=== PATIENT | female | born 1960 | race Caucasian/White ===

== ENCOUNTER 2018-10-24 21:01 | Inpatient (IN) | payer MEDICAID | END 2018-10-28 14:05 | disposition home or self-care (01) | LOC: ER 21:01 → TELE-CENTR 10-25 21:28 → TELE 10-25 03:03 → TELE-CENTR 10-25 21:38 | DX: I11.0 Hypertensive heart disease with heart failure (principal); J44.1 Chronic obstructive pulmonary disease with (acute) exacerbation; I50.33 Acute on chronic diastolic (congestive) heart failure; E66.9 Obesity, unspecified; G25.81 Restless legs syndrome ==

== ENCOUNTER 2019-06-03 10:19 | Inpatient (IN) | payer MEDICAID ==
[~2019-06-03] VITALS: Ht 157.5 cm; Wt 171.8 kg
[~2019-06-03 10:19] MED LIST: ALBUAER3 IN; AMLO5TAB15 PO; BECL40AE11 IN; BUP100T PO; HYDR50TA69 PO; LAM100T PO; OME20T PO; SIMV-8 PO; SUVO1TAB4 PO
[2019-06-03] MEDS ORDERED: SODIUM CHLORIDE 0.9% 1,000 ML IV ONE (11:05)
[2019-06-03 11:40] LABS: Basophils % (auto) 0.5 % (0.0-2.0); Eosinophils # (auto) 0.2 uL; Hemoglobin 8.9 g/dL (12.2-16.2); Mean Corpuscular Hgb Conc. 29.6 g/dL (32.0-36.0); Nucleated Red Blood Cells % 0.2 %; Red Blood Cells 4.06 10^6/uL (4.0-5.20)
[2019-06-03 11:41] LABS: Basophils # (auto) 0.1 uL; Eosinophils % (auto) 2.1 % (0.0-7.0); Hematocrit 30.1 % (36.0-46.0); Mean Corpuscular Hemoglobin 21.9 pg (28.0-32.0); Mean Corpuscular Volume 74.1 fL (80.0-100.0); Monocytes # (auto) 0.9 uL; Monocytes % (auto) 8.9 % (0.0-12.0); Neutrophils # (auto) 6.9 uL; Neutrophils % (auto) 68.5 % (37.0-80.0); Platelet Count (auto) 407 10^3/uL (140-450); Red Cell Distribution Width 18.9 % (11.8-14.3); White Blood Cell 10.1 10^3/uL (4.4-10.8)
[2019-06-03 11:59] LABS: INR < 0.93 (0.9-1.15); Partial Thromboplastin Time 24.9 sec (23.64-32.05)
[2019-06-03 12:40] LABS: Alanine Aminotransferase 32 U/L (13-56); Albumin 3.4 g/dL (3.4-5.0); Anion Gap 7 (5-15); Blood Urea Nitrogen 10 mg/dL (7-18); Calcium 8.8 mg/dL (8.5-10.1); Carbon Dioxide 34 mmol/L (21-32); Chloride 98 mmol/L (98-107); Glucose 289 mg/dL (74-106); Magnesium 2.2 mg/dL (1.6-2.6); Potassium 3.8 mmol/L (3.5-5.1); Sodium 139 mmol/L (136-145)
[2019-06-03 12:45] LABS: Alkaline Phosphatase 103 U/L (45-117); Aspartate Aminotransferase 21 U/L (15-37); BUN/Creatinine Ratio 11.9; Bilirubin, Total 0.3 mg/dL (0.2-1.0); GFR African American 89 mL/min; GFR Non-African American 74 mL/min; Total Protein 7.6 g/dL (6.4-8.2)
[2019-06-03] MEDS ORDERED: IOHEXOL 350 MG/ML 100ML IJ ONE (14:15)
[2019-06-03] MEDS ORDERED: cefTRIAXone 1GM/50ML D5W 50 ML IV ONE (15:00)
[2019-06-03] MEDS ORDERED: FUROSEMIDE 20 MG/2 ML VIAL IV ONE (15:00)
[2019-06-03] MEDS ORDERED: SPIRONOLACTONE 25 MG TAB PO ONE (15:00)
[2019-06-03] MEDS ORDERED: ONDANSETRON HCL 4 MG/2 ML VIAL IV PRN (16:15)
[2019-06-03] MEDS ORDERED: ACETAMINOPHEN 500 MG TAB PO PRN (16:15)
[2019-06-03] MEDS ORDERED: NITROGLYCERIN 0.4 MG SL TAB SL PRN (16:15)
[2019-06-03] MEDS ORDERED: HYDROcodone-ACET 5/325MG TAB PO PRN (16:15)
[2019-06-03] MEDS ORDERED: MORPHINE SULF INJ 2 MG/ML SYRINGE 1ML IV PRN ×2 (16:15)
[2019-06-03 16:22] LABS: Urine Bacteria NONE SEEN /hpf (None Seen); Urine Blood Negative /uL (Negative); Urine Specific Gravity 1.008 (1.001-1.035); Urine WBC 1 /hpf (0 - 5)
[2019-06-03] MEDS ORDERED: DEXTROSE (50%) 50ML SYRG IV PRN (16:30)
[2019-06-03] MEDS: ACCU-CHEK COMFORT CURVE STRIP VI SCH ×2 (18:15→21:49)
--- NOTE | 2019-06-03 18:20 | NUR ---
RECEIVED REPORT FROM GAVIN MOBLEY.
[2019-06-03] MEDS: InsuLIN REG 1unit/0.01ml Soln (100units/ml) SC SCH ×2 (18:26→21:49)
[2019-06-03] MEDS: FUROSEMIDE 20 MG/2 ML VIAL IV SCH (18:26)
[2019-06-03] MEDS: ALBUTEROL SULF 2.5 MG/0.5ML(0.5%) NEB SOLN NEB SCH ×2 (18:27→23:47)
[2019-06-03] MEDS: IPRATROPIUM BROM 0.5 MG/2.5ML INH SOL NEB SCH ×2 (18:27→23:47)
[2019-06-03] MEDS: BUDESONIDE (INHALATION) 0.5 MG/2 ML NEB NEB SCH (18:27)
[2019-06-03 19:05] VITALS: BP 120/53
--- NOTE | 2019-06-03 19:50 | NUR ---
RECEIVED PATIENT FROM ED VIA STRETCHER, AWAKE, ALERT, ORIENTED X4. NO S/S OF RESPIRATORY DISTRESS, DENIES ANY PAIN. ORIENTED ON PLAN OF CARE. BED IS LOCKED AND IN LOWEST POSITION, SIDE RAILS UP X2, CALL LIGHT WITHIN REACH. WILL CONTINUE TO MONITOR
[2019-06-03 20:00] VITALS: BP 127/60
[2019-06-03] MEDS: MIRTAZAPINE 30 MG TAB PO SCH (21:48)
[2019-06-03] MEDS: BENAZEPRIL HCL 10 MG TAB PO SCH (21:48)
[2019-06-03] MEDS: ATORVASTATIN 20 MG TAB PO SCH (21:48)
[2019-06-03] MEDS: CLINDAMYCIN 300MG IV 50 ML IV SCH (21:50)
[2019-06-03 22:00] VITALS: BP 114/34
[2019-06-03] MEDS ORDERED: INFLUENZA QUAD 2019-2020 0.5ml SYRG IM ONE (23:00)
[2019-06-03] MEDS ORDERED: PNEUMOCOCCAL VACC POLYS 25 MCG/0.5 ML VIAL IM ONE (23:00)
[2019-06-04] MEDS ORDERED: POTA10TA51 PO (01:16)
[2019-06-04] MEDS ORDERED: CYA100I PO (01:16)
[2019-06-04] MEDS ORDERED: CHOL20007 OR (01:16)
[2019-06-04] MEDS ORDERED: ROPI0.5T16 PO (01:16)
[2019-06-04] MEDS ORDERED: FURO40TA4 PO (01:16)
[2019-06-04] MEDS ORDERED: MIRT30TA PO (01:16)
[2019-06-04] MEDS ORDERED: OMEP20TA PO (01:16)
[2019-06-04] MEDS ORDERED: ASPI-404 PO (01:16)
[2019-06-04] MEDS ORDERED: AMLO5TAB15 PO (01:16)
[2019-06-04 05:00] VITALS: BP 100/78
[2019-06-04] MEDS: FUROSEMIDE 20 MG/2 ML VIAL IV SCH ×2 (05:55→18:33)
[2019-06-04] MEDS: CLINDAMYCIN 300MG IV 50 ML IV SCH (05:55)
[2019-06-04] MEDS: BUDESONIDE (INHALATION) 0.5 MG/2 ML NEB NEB SCH ×2 (06:11→18:19)
[2019-06-04] MEDS: IPRATROPIUM BROM 0.5 MG/2.5ML INH SOL NEB SCH ×6 (06:11→23:46)
[2019-06-04] MEDS: ALBUTEROL SULF 2.5 MG/0.5ML(0.5%) NEB SOLN NEB SCH ×6 (06:11→23:46)
[2019-06-04 06:35] LABS: Basophils # (auto) 0.1 uL; Basophils % (auto) 0.7 % (0.0-2.0); Eosinophils # (auto) 0.2 uL; Eosinophils % (auto) 2.6 % (0.0-7.0); Hematocrit 30.1 % (36.0-46.0); Hemoglobin 8.9 g/dL (12.2-16.2); Lymphocytes # (auto) 1.8 uL; Lymphocytes % (auto) 19.2 % (10.0-50.0); Mean Corpuscular Hemoglobin 21.6 pg (28.0-32.0); Mean Corpuscular Hgb Conc. 29.4 g/dL (32.0-36.0); Mean Corpuscular Volume 73.4 fL (80.0-100.0); Monocytes # (auto) 0.7 uL; Monocytes % (auto) 7.9 % (0.0-12.0); Neutrophils # (auto) 6.5 uL; Neutrophils % (auto) 69.6 % (37.0-80.0); Nucleated Red Blood Cells % 0.1 %; Platelet Count (auto) 368 10^3/uL (140-450); Red Cell Distribution Width 19.2 % (11.8-14.3); White Blood Cell 9.3 10^3/uL (4.4-10.8)
[2019-06-04] MEDS: InsuLIN REG 1unit/0.01ml Soln (100units/ml) SC SCH ×4 (06:35→21:54)
[2019-06-04] MEDS: ACCU-CHEK COMFORT CURVE STRIP VI SCH ×4 (06:35→21:54)
[2019-06-04 06:50] LABS: BUN/Creatinine Ratio 9.1; Calcium 8.5 mg/dL (8.5-10.1); Potassium 3.6 mmol/L (3.5-5.1)
--- NOTE | 2019-06-04 07:08 | NUR ---
CARE ENDORSED TO AM SHIFT RN
--- NOTE | 2019-06-04 08:00 | NUR ---
Opening Shift Note Assumed care of patient, awake, alert, and oriented. No S/S of distress/SOB or pain. Bed in low/locked position, bed rails up x2.. Instructed on POC and to call for assist PRN with call light within reach. Will continue to monitor for changes Q1hr and PRN.
[2019-06-04 09:00] VITALS: BP 125/56
[2019-06-04] MEDS ORDERED: cefTRIAXone 1GM/50ML D5W 50 ML IV SCH ×2 (09:00)
[2019-06-04] MEDS: ENOXAPARIN SOD 40 MG/0.4 ML SYRINGE SC SCH (09:21)
[2019-06-04] MEDS: PANTOPRAZOLE 40 MG TAB PO SCH (09:21)
[2019-06-04] MEDS: ASPirin-EC 81 mg tab PO SCH (09:22)
[2019-06-04] MEDS: lamoTRIgine 100 MG TAB PO SCH (09:22)
[2019-06-04] MEDS: BENAZEPRIL HCL 10 MG TAB PO SCH ×2 (09:23→21:53)
--- NOTE | 2019-06-04 10:23 | NUR ---
MD ROUNDS DR MONROY AT BEDSIDE DISCUSSING POC WITH PATIENT. ALL QUESTIONS/CONCERNS ANSWERED. NEW ORDERS/RECEIVED. WILL CONTINUE TO MONITOR.
[2019-06-04] MEDS ORDERED: BUDESONIDE (INHALATION) 0.5 MG/2 ML NEB NEB ONE (11:30)
--- NOTE | 2019-06-04 11:55 | NUR ---
WOUND CARE NOTE: PATIENT NOTED UPON ADMIT TO HAVE SKIN INTEGRITY ISSUES TO BILATERAL LOWER EXTREMITIES. WOUND PHOTOS TAKEN AT THAT TIME BY BEDSIDE NURSE FOR REFERENCE. PATIENT ADMITTED TO [facility] WITH DIAGNOSIS OF ACUTE ON CHRONIC RESPIRATORY FAILURE. CURRENT CLARITA SCORE IS 19. PATIENT IS FULLY AMBULATORY. SHE IS NOTED TO HAVE ERYTHEMA, EDEMA TO BILATERAL LOWER EXTREMITIES WITH SCABBED OVER BLISTERS. SKIN IS INTACT AT THIS TIME. LEFT OPEN TO AIR. PATIENT WOULD BENEFIT FROM ELEVATION OF BOTH LOWER LEGS UP ONTO PILLOWS TO HELP WITH CONTROL OF EDEMA. THERE IS NO FURTHER WOUND CARE MONITORING NEEDED AT THIS TIME. SKIN/WOUND CARE PLAN IMPLEMENTED AT THIS TIME.
[2019-06-04] MEDS: DOXYCYCLINE 100MG/250ML 250 ML IV SCH ×2 (12:22→23:37)
--- NOTE | 2019-06-04 12:35 | NUR ---
MD ROUNDS DR ESTRADA AT BEDSIDE DISCUSSING POC WITH PATIENT. ALL QUESTIONS/CONCERNS ANSWERED. NEW ORDERS/RECEIVED. WILL CONTINUE TO MONITOR.
--- NOTE | 2019-06-04 12:50 | NUR ---
LAB SPUTUM CULTURE SENT
[2019-06-04 13:00] VITALS: BP 118/69
[2019-06-04] MEDS ORDERED: OPTISON 3ml Vial for INJ IV ONE (15:17)
--- NOTE | 2019-06-04 16:30 | NUR ---
PAGED PAGED DR ESTRADA RE: BREO AND SPIRIVA MEDICATIONS. PHARMACY RECOMMENDS ALBUTEROL, IPRATROPIUM, BUDESOMIDE, XOPENEX. LEFT MESSAGE WITH EXCHANGE.
[2019-06-04 17:00] VITALS: BP 123/64
--- NOTE | 2019-06-04 19:20 | NUR ---
RECEIVED PATIENT, AWAKE, ALERT, ORIENTED X4. NO S/S OF RESPIRATORY DISTRESS. ORIENTED ON PLAN OF CARE. BED IS LOCKED AND IN LOWEST POSITION, SIDE RAILS UP X2, CALL LIGHT WITHIN REACH. WILL CONTINUE TO MONITOR
--- NOTE | 2019-06-04 20:00 | NUR ---
[facility] HOSPITALIST, PATIENT WANTS A SLEEPING PILL LENA RECEIVED ORDER FROM ODIN MASON; TEMAZEPAM 15 MG 1 TAB HS PRN FOR INSOMNIA
[2019-06-04] MEDS ORDERED: TEMAZEPAM 15 MG CAP PO PRN (20:15)
[2019-06-04] MEDS: methylPREDNISolone SOD SUCC 125 MG/2 ML VL IV SCH (21:51)
[2019-06-04] MEDS: ATORVASTATIN 20 MG TAB PO SCH (21:51)
[2019-06-04] MEDS: MIRTAZAPINE 30 MG TAB PO SCH (21:53)
[2019-06-04 22:00] VITALS: BP 114/56
[2019-06-05] MEDS: FUROSEMIDE 20 MG/2 ML VIAL IV SCH (05:35)
[2019-06-05 05:43] VITALS: BP 128/80
[2019-06-05] MEDS: ACCU-CHEK COMFORT CURVE STRIP VI SCH ×2 (06:23→12:40)
[2019-06-05] MEDS: InsuLIN REG 1unit/0.01ml Soln (100units/ml) SC SCH ×2 (06:23→11:21)
[2019-06-05] MEDS: ALBUTEROL SULF 2.5 MG/0.5ML(0.5%) NEB SOLN NEB SCH ×2 (06:52→11:31)
[2019-06-05] MEDS: IPRATROPIUM BROM 0.5 MG/2.5ML INH SOL NEB SCH ×2 (06:52→11:32)
[2019-06-05] MEDS: BUDESONIDE (INHALATION) 0.5 MG/2 ML NEB NEB SCH (06:55)
--- NOTE | 2019-06-05 07:13 | NUR ---
CARE ENDORSED TO AM SHIFT RN
[2019-06-05 07:18] LABS: Albumin 3.1 g/dL (3.4-5.0); Calcium 8.5 mg/dL (8.5-10.1); Potassium 4.2 mmol/L (3.5-5.1)
[2019-06-05 07:21] LABS: BUN/Creatinine Ratio 10.3; Bilirubin, Total 0.3 mg/dL (0.2-1.0); Total Protein 7.5 g/dL (6.4-8.2)
[2019-06-05 07:38] LABS: Basophils # (auto) 0 uL; Basophils % (auto) 0.5 % (0.0-2.0); Eosinophils # (auto) 0 uL; Eosinophils % (auto) 0.1 % (0.0-7.0); Hematocrit 31.6 % (36.0-46.0); Hemoglobin 9.1 g/dL (12.2-16.2); Lymphocytes % (auto) 9.3 % (10.0-50.0); Mean Corpuscular Hemoglobin 21.4 pg (28.0-32.0); Mean Corpuscular Hgb Conc. 28.9 g/dL (32.0-36.0); Mean Corpuscular Volume 73.9 fL (80.0-100.0); Monocytes # (auto) 0.1 uL; Neutrophils # (auto) 9.2 uL; Neutrophils % (auto) 89.1 % (37.0-80.0); Nucleated Red Blood Cells % 0.1 %; Platelet Count (auto) 429 10^3/uL (140-450); Red Blood Cells 4.28 10^6/uL (4.0-5.20); Red Cell Distribution Width 19.2 % (11.8-14.3); White Blood Cell 10.3 10^3/uL (4.4-10.8)
[2019-06-05] MEDS ORDERED: INSULIN LANTUS (GLARGINE) 1 /0.01ml (100units/ml) SC ONE (07:45)
--- NOTE | 2019-06-05 08:00 | NUR ---
Opening Shift Note Assumed care of patient, awakened to voice. Patient is alert and orientated to person, place, time, and situation. Patient is no signs or symptoms of distress and not in pain. Patient has a right hand 22gauge saline locked peripheral IV and a Sky catheter place to monitor intake/output. Patient instructed on plan of care and to call for assist PRN, will continue to monitor for changes Q1hr and PRN.
[2019-06-05 09:00] VITALS: BP 148/72
[2019-06-05] MEDS: methylPREDNISolone SOD SUCC 125 MG/2 ML VL IV SCH (09:17)
[2019-06-05] MEDS: lamoTRIgine 100 MG TAB PO SCH (09:20)
[2019-06-05] MEDS: PANTOPRAZOLE 40 MG TAB PO SCH (09:20)
[2019-06-05] MEDS: BENAZEPRIL HCL 10 MG TAB PO SCH (09:21)
[2019-06-05] MEDS: ASPirin-EC 81 mg tab PO SCH (09:22)
[2019-06-05] MEDS: ENOXAPARIN SOD 40 MG/0.4 ML SYRINGE SC SCH (09:22)
[2019-06-05] MEDS: DOXYCYCLINE 100MG/250ML 250 ML IV SCH (11:20)
[2019-06-05] MEDS ORDERED: INSULIN LISPRO (HUMAN) 100 UNITS/ML ML SC ONE (11:30)
--- NOTE | 2019-06-05 11:30 | NUR ---
Communication for High Blood Sugar Patient's blood sugar [address] Souza notified and initiated instruction to administer additional insulin lispro. Will continue to monitor.
[2019-06-05] MEDS ORDERED: METF-371 PO (11:59)
[2019-06-05] MEDS ORDERED: BEN10T PO (11:59)
[2019-06-05] MEDS ORDERED: BLOO-200 XX (11:59)
[2019-06-05] MEDS ORDERED: DOXY-338 PO (11:59)
[2019-06-05 13:00] VITALS: BP 157/61
[2019-06-05 13:48] VITALS: BP 157/61
[2019-06-05] MEDS ORDERED: PNEUMOCOCCAL VACC POLYS 25 MCG/0.5 ML VIAL IM ONE (14:15)
[2019-06-05] MEDS ORDERED: INFLUENZA QUAD 2019-2020 0.5ml SYRG IM ONE (14:15)
--- NOTE | 2019-06-05 14:20 | NUR ---
I faxed home health order to [employer] [employer]-requesting authorization for [facility].
--- NOTE | 2019-06-05 14:52 | NUR ---
DR. ESTRADA AT BEDSIDE ORDERED PREDNISONE FOR PATIENT TO BE GIVEN UPON DISCHARGE.
--- NOTE | 2019-06-05 15:21 | NUR ---
[facility] QUANITY 20 PILLS PREDNISONE
--- NOTE | 2019-06-05 16:28 | NUR ---
Discharge instructions given as ordered. Encourage to follow up with PMD as instructed. All questions and concerns addressed. Patient verbalized understanding. Medication reconciliation form completed and copy given to patient. Needed vaccines given. IV removed with catheter intact, pressure dressing applied, feng catheter removed. Telemetry unit returned to ICU. Patient taken to vehicle via wheelchair with all personal belongings, accompanied by staff and family member. No distress noted at time of departure.
--- NOTE | 2019-06-05 16:48 | NUR ---
called in prescriptions to [facility] on and in [place]. new prescriptions [facility] not [facility] called in benazepril, metformin, and glucose monitor, lancets, strips.
--- NOTE | 2019-06-05 17:37 | NUR ---
D/C Planning Per SS consult for home health for home nurse for diabetic education and medication management. Contacted [facility] Ph:( [phone]) Fax:) faxed medical records. Per Trudy from [facility] Pt has been accepted and service to start within 48hrs upon d/c day. Informed CM Karyna for authorization.
[2019-06-05] MEDS ORDERED: INSULIN LANTUS (GLARGINE) 1 /0.01ml (100units/ml) SC SCH (22:00)
[2019-06-05] MEDS ORDERED: DOXYCYCLINE 100 MG TAB/CAP PO SCH (22:00)
[2019-06-19] MEDS ORDERED: INSUINJ37 SC (11:50)
== END 2019-06-05 16:28 | disposition home health service (06) | DRG 133 ==
LOC: ER 10:19 → TELE 10:20 → TELE-CENTR 19:05
PROVIDERS: ADMIT Nurse Practitioner Acute Care; ATTEND Internal Medicine
DX: J96.20 Acute and chronic respiratory failure, unspecified whether with hypoxia or hypercapnia (principal); I50.43 Acute on chronic combined systolic (congestive) and diastolic (congestive) heart failure; L03.115 Cellulitis of right lower limb; E44.1 Mild protein-calorie malnutrition; E11.65 Type 2 diabetes mellitus with hyperglycemia; E66.01 Morbid (severe) obesity due to excess calories; Z99.81 Dependence on supplemental oxygen; J44.1 Chronic obstructive pulmonary disease with (acute) exacerbation; L03.116 Cellulitis of left lower limb; I11.0 Hypertensive heart disease with heart failure; G25.81 Restless legs syndrome; F31.9 Bipolar disorder, unspecified; D50.9 Iron deficiency anemia, unspecified; E78.5 Hyperlipidemia, unspecified; K21.9 Gastro-esophageal reflux disease without esophagitis; Z68.44 Body mass index [BMI] 60.0-69.9, adult; Z88.2 Allergy status to sulfonamides; Z88.8 Allergy status to other drugs, medicaments and biological substances; Z23 Encounter for immunization; Z79.84 Long term (current) use of oral hypoglycemic drugs; Z80.0 Family history of malignant neoplasm of digestive organs; Z81.8 Family history of other mental and behavioral disorders; Z82.0 Family history of epilepsy and other diseases of the nervous system; Z82.49 Family history of ischemic heart disease and other diseases of the circulatory system; Z87.891 Personal history of nicotine dependence; Z85.028 Personal history of other malignant neoplasm of stomach; Z90.49 Acquired absence of other specified parts of digestive tract
CPT/HCPCS: 36415; 71045; 71046; 71275; 80048; 80053; 81001; 82962; 83036; 83540; 83550; 83735; 83880; 84443; 84484; 85025; 85379; 85610; 85730; 87040; 87070; 87205; 87804; 93005; 93306; 94640; 94761; 96361; 96365; 96375; 96376; 99291; G0378; J0696; J1815; J3490; Q9956

== ENCOUNTER 2019-06-15 10:28 | Inpatient (IN) | payer MEDICAID ==
[~2019-06-15] VITALS: Ht 157.5 cm; Wt 158.7 kg
[~2019-06-15 10:28] MED LIST changes: -AMLO5TAB15 PO; +ASPI-404 PO; -BECL40AE11 IN; +BEN10T PO; +BLOO-200 XX; -BUP100T PO; +CHOL20007 OR; +CYA100I PO; +DOXY-338 PO; +FURO40TA4 PO; -HYDR50TA69 PO; +METF-371 PO; +MIRT30TA PO; -OME20T PO; +OMEP20TA PO; +POTA10TA51 PO; +ROPI0.5T16 PO; -SUVO1TAB4 PO
[2019-06-15] MEDS ORDERED: methylPREDNISolone SOD SUCC 125 MG/2 ML VL IV ONE (11:00)
[2019-06-15] MEDS ORDERED: ALBUTEROL SULF 2.5 MG/0.5ML(0.5%) NEB SOLN HHN ONE (11:30)
[2019-06-15] MEDS ORDERED: IPRATROPIUM BROM 0.5 MG/2.5ML INH SOL HHN ONE (11:30)
[2019-06-15 11:41] LABS: Basophils # (auto) 0.1 uL; Eosinophils # (auto) 0.2 uL; Eosinophils % (auto) 1.6 % (0.0-7.0)
[2019-06-15 11:43] LABS: Basophils % (auto) 1.1 % (0.0-2.0); Hematocrit 29.6 % (36.0-46.0); Hemoglobin 8.5 g/dL (12.2-16.2); Lymphocytes # (auto) 2.7 uL; Lymphocytes % (auto) 20.2 % (10.0-50.0); Mean Corpuscular Hemoglobin 21.1 pg (28.0-32.0); Mean Corpuscular Hgb Conc. 28.6 g/dL (32.0-36.0); Mean Corpuscular Volume 73.8 fL (80.0-100.0); Monocytes # (auto) 1.1 uL; Monocytes % (auto) 8.2 % (0.0-12.0); Neutrophils # (auto) 9.2 uL; Neutrophils % (auto) 68.9 % (37.0-80.0); Nucleated Red Blood Cells % 0.1 %; Platelet Count (auto) 350 10^3/uL (140-450); Red Blood Cells 4.01 10^6/uL (4.0-5.20); Red Cell Distribution Width 19.3 % (11.8-14.3); White Blood Cell 13.3 10^3/uL (4.4-10.8)
[2019-06-15 11:59] LABS: Alanine Aminotransferase 41 U/L (13-56); Albumin 3.6 g/dL (3.4-5.0); Anion Gap 5 (5-15); Aspartate Aminotransferase 12 U/L (15-37); BUN/Creatinine Ratio 12.8; Blood Urea Nitrogen 12 mg/dL (7-18); Calcium 8.6 mg/dL (8.5-10.1); Chloride 93 mmol/L (98-107); GFR African American 78 mL/min; GFR Non-African American 65 mL/min; Glucose 236 mg/dL (74-106); Potassium 4.4 mmol/L (3.5-5.1); Sodium 139 mmol/L (136-145)
[2019-06-15 12:02] LABS: Lactic Acid w/Reflex 2.7 mmol/L (0.4-2.0)
[2019-06-15 12:04] LABS: Alkaline Phosphatase 81 U/L (45-117); Bilirubin, Total 0.5 mg/dL (0.2-1.0); Total Protein 7.2 g/dL (6.4-8.2)
[2019-06-15 12:06] LABS: Carbon Dioxide 41 mmol/L (21-32)
[2019-06-15 13:02] LABS: Urine WBC None Seen /hpf (0 - 5)
[2019-06-15 13:09] LABS: Urine Bacteria NONE SEEN /hpf (None Seen); Urine Blood Negative /uL (Negative); Urine Specific Gravity 1.024 (1.001-1.035)
[2019-06-15] MEDS ORDERED: SODIUM CHLORIDE 0.9% 1,000 ML IV SCH (13:47)
[2019-06-15] MEDS ORDERED: ACETAMINOPHEN 500 MG TAB PO PRN (14:00)
[2019-06-15] MEDS ORDERED: LORazepam 0.5 MG TAB PO PRN (14:00)
[2019-06-15] MEDS ORDERED: ALBUTEROL SULF 2.5 MG/0.5ML(0.5%) NEB SOLN NEB PRN (14:00)
[2019-06-15] MEDS ORDERED: DEXTROSE (50%) 50ML SYRG IV PRN (14:00)
[2019-06-15] MEDS ORDERED: LACTULOSE 20Gm/30ML SOLN PO PRN (14:00)
[2019-06-15] MEDS ORDERED: traMADol HCL 50 MG TAB PO PRN (14:00)
[2019-06-15] MEDS ORDERED: NITROGLYCERIN 0.4 MG SL TAB SL PRN (14:00)
[2019-06-15] MEDS ORDERED: MORPHINE SULF INJ 2 MG/ML SYRINGE 1ML IV PRN (14:00)
[2019-06-15 14:38] VITALS: BP 148/72
[2019-06-15] MEDS: methylPREDNISolone SOD SUCC 40 MG/ML VL IV SCH (15:27)
[2019-06-15] MEDS: DOXYCYCLINE 100MG/250ML 250 ML IV SCH (15:27)
[2019-06-15 15:55] VITALS: BP 150/87
--- NOTE | 2019-06-15 15:55 | NUR ---
Telemetry admit from [facility] admitted to Telemetry unit after SBAR received. Patient oriented to Viviane Leggett, primary RN, unit, room, bed, and unit policies regarding patient care and visiting hours. Patient now on continuous telemetry monitoring, tele box #71 and telemetry reading on arrival to unit is SR. Patient placed on bedside oxygen, weighed by bedscale and encouraged to call if they need something. All questions and concerns addressed, patient verbalized understanding. Son at bedside.
[2019-06-15] MEDS ORDERED: ACCU-CHEK COMFORT CURVE STRIP VI SCH (17:00)
[2019-06-15] MEDS ORDERED: InsuLIN REG 1unit/0.01ml Soln (100units/ml) SC SCH (17:00)
--- NOTE | 2019-06-15 17:40 | NUR ---
accu check PATIENT'S BLOOD SUGAR IS 479,, paged for hospitalist. No s/s of distress noted. Will continue to monitor. Addendum: 06/15/19 at 1803 by Viviane Leggett RN awaiting call back.
[2019-06-15] MEDS ORDERED: methylPREDNISolone SOD SUCC 40 MG/ML VL IV SCH (18:00)
--- NOTE | 2019-06-15 18:47 | NUR ---
Closing Note Patient is sitting up in bed with 3L 02 NC, no s/s of distress/sob noted. Bed at lowest locked position, bed side rails up x2 and call light within reach. Will endorse care to NO RN.
[2019-06-15] MEDS: ALBUTEROL SULF 2.5 MG/0.5ML(0.5%) NEB SOLN NEB SCH (18:50)
[2019-06-15] MEDS: IPRATROPIUM BROM 0.5 MG/2.5ML INH SOL NEB SCH (18:50)
--- NOTE | 2019-06-15 19:40 | NUR ---
Opening Shift Note Assumed care of patient, awake and alert. No S/S of distress/SOB or pain. Bed in lowest locked position, side rails up x2, call light within reach. Instructed on POC and to callfor assist PRN, will continue to monitor for changes Q1hr and PRN.
[2019-06-15 22:33] VITALS: BP 121/49
[2019-06-15] MEDS: CLINDAMYCIN 600MG IV 50 ML IV SCH (22:57)
[2019-06-15] MEDS: ACCU-CHEK COMFORT CURVE STRIP VI SCH (23:00)
[2019-06-15] MEDS: InsuLIN REG 1unit/0.01ml Soln (100units/ml) SC SCH (23:30)
--- NOTE | 2019-06-16 | NUR ---
Hospitalist Paged Blood sugar 466 on initial check, 479 on reassessment. New orders from Dr. Lu noted regarding blood sugar checks now every four hours and insulin now on a moderate sliding scale. 15 units of regular insulin given as ordered. Patient also requesting to continue home medications Requip 3 mg PO TID and Remeron 45 mg PO Daily. Per court recording monitor Natalie, patient also had "a few beats of a-fib or a-flutter" before converting back to sinus rhythm. Patient assessed and found to be stable with no s/s of distress, reports she was "getting up to the bathroom." EKG performed, machine reading "normal sinus rhythm" with a 95 heart rate. Strip showing "a-fib or a-flutter" and EKG placed in hard chart. call circuit worker hospitalist paged, awaiting call back at this time.
--- NOTE | 2019-06-16 00:10 | NUR ---
Return Call From Hospitalist Received call from j2ee consultant hospitalist Bartolome Pack DRIVEMATIC MACHINE OPERATOR, informed of information in previous note, no new orders received, will continue to monitor.
[2019-06-16] MEDS: IPRATROPIUM BROM 0.5 MG/2.5ML INH SOL NEB SCH ×4 (00:26→19:25)
[2019-06-16] MEDS: ALBUTEROL SULF 2.5 MG/0.5ML(0.5%) NEB SOLN NEB SCH ×4 (00:26→19:25)
--- NOTE | 2019-06-16 02:13 | NUR ---
A flutter tele monitor called. pt converted to A Flutter. checked pt and she stated she could feel her heart flutter. pt stated she was not SOB. vital signs hr 93, o2 93%, bp 146/61. Primary RN, Shira just came back from break, told her and she is doing an EKG.
--- NOTE | 2019-06-16 02:28 | NUR ---
EKG performed, machine reading "sinus rhythm with occasional and consecutive premature ventricular complexes and fusion complexes" at 93 beats per minute. Patient denying pain, reports only feeling an occasional "flutter in [my] chest." EKG and strips from monitor technicians shown to sales agent pest control service hospitalist Bartolome Pack NP, new orders received for troponin lab draw and cardiology consult. Orders read back and verified, will implement and continue to monitor patient. EKG and strips from monitor technicians placed in patient's hard chart.
[2019-06-16] MEDS: methylPREDNISolone SOD SUCC 40 MG/ML VL IV SCH ×2 (02:59→14:26)
[2019-06-16] MEDS: DOXYCYCLINE 100MG/250ML 250 ML IV SCH ×2 (02:59→14:26)
[2019-06-16] MEDS: InsuLIN REG 1unit/0.01ml Soln (100units/ml) SC SCH ×5 (04:39→20:44)
[2019-06-16] MEDS: ACCU-CHEK COMFORT CURVE STRIP VI SCH ×5 (04:39→20:43)
[2019-06-16] MEDS: CLINDAMYCIN 600MG IV 50 ML IV SCH ×3 (04:57→21:44)
[2019-06-16 05:34] VITALS: BP 141/81
--- NOTE | 2019-06-16 07:00 | NUR ---
Closing Note Patient lying in bed, awake and alert. No s/s of distress. Bed in lowest locked position, side rails up x2, call light within reach. Care endorsed to dayshift RN.
--- NOTE | 2019-06-16 07:50 | NUR ---
OPENING NOTE ASSUMED CARE OF PT. ALERT AND ORIENTED. NO S/S OF SOB OR DISTRESS. DENIES PAIN. SAFETY PRECAUTIONS IN PLACE. BED SET TO LOWEST POSITION/LOCKED. BEDSIDE RAILS UP X2. CALL LIGHT WITHIN REACH. INSTRUCTED PT TO CALL FOR ASSISTANCE. UPDATED ON POC. PT VERBALIZED UNDERSTANDING. WILL CONTINUE TO MONITOR Q1HR/PRN.
[2019-06-16 08:00] VITALS: BP 135/62
[2019-06-16] MEDS: ENOXAPARIN SOD 40 MG/0.4 ML SYRINGE SC SCH (09:22)
--- NOTE | 2019-06-16 10:21 | NUR ---
PAGED DR. MCNEILL. AWAITING CALL BACK. RECEIVED CALL BACK FROM . NEW ORDERS GIVE/CARRIED OUT
[2019-06-16] MEDS ORDERED: guaiFENesin-DM 100/10mg/5ml SYR PO PRN (10:30)
--- NOTE | 2019-06-16 10:32 | NUR ---
RESP CX RESP CX COLLECTED AND SENT TO LAB
[2019-06-16] MEDS: guaiFENesin-DM 100/10mg/5ml SYR PO PRN ×2 (12:04→22:08)
[2019-06-16 13:35] VITALS: BP 106/53
[2019-06-16 16:40] VITALS: BP 127/73
--- NOTE | 2019-06-16 18:30 | NUR ---
IV insertion IV access obtained, via clean sterile technique by inserting 22 gauge catheter at right upper chest after 2 attempt(s). IV secured properly. No trauma to site. Patient tolerated well. Addendum: 06/16/19 at 1927 by Leann Mcclendon RN LEFT UPPER CHEST
--- NOTE | 2019-06-16 18:40 | NUR ---
IV removal Right FA 20 gauge IV cath DC'd with clean sterile technique, catheter fully intact. Pressure dressing applied to site. Patient tolerated well.
--- NOTE | 2019-06-16 19:15 | NUR ---
Opening Shift Note Assumed care of patient, awake and alert. No S/S of distress/SOB or pain. Bed in lowest locked position, side rails up x2, call light within reach. Instructed on POC and to call for assist PRN, will continue to monitor for changes Q1hr and PRN.
[2019-06-16] MEDS: MIRTAZAPINE 30 MG TAB PO SCH (21:44)
[2019-06-16 22:00] VITALS: BP 138/46
[2019-06-17] MEDS: IPRATROPIUM BROM 0.5 MG/2.5ML INH SOL NEB SCH ×4 (00:01→18:00)
[2019-06-17] MEDS: ALBUTEROL SULF 2.5 MG/0.5ML(0.5%) NEB SOLN NEB SCH ×4 (00:01→18:00)
[2019-06-17] MEDS: InsuLIN REG 1unit/0.01ml Soln (100units/ml) SC SCH ×6 (00:09→23:58)
[2019-06-17] MEDS: ACCU-CHEK COMFORT CURVE STRIP VI SCH ×7 (00:09→23:58)
[2019-06-17] MEDS: TEMAZEPAM 15 MG CAP PO PRN ×2 (00:09→22:52)
[2019-06-17] MEDS: methylPREDNISolone SOD SUCC 40 MG/ML VL IV SCH ×2 (02:14→15:10)
[2019-06-17] MEDS: DOXYCYCLINE 100MG/250ML 250 ML IV SCH ×2 (02:14→15:10)
[2019-06-17 05:00] VITALS: BP 151/74
[2019-06-17 05:45] VITALS: BP 151/74
[2019-06-17] MEDS: CLINDAMYCIN 600MG IV 50 ML IV SCH ×2 (06:10→15:10)
--- NOTE | 2019-06-17 06:51 | NUR ---
Closing Note Patient lying in bed, eyes closed, respirations even and unlabored, appears asleep. Patient awakens to name and touch. No s/s of distress. Bed in lowest locked position, side rails up x2, call light within reach. Care endorsed to dayshift RN.
[2019-06-17] MEDS: ENOXAPARIN SOD 40 MG/0.4 ML SYRINGE SC SCH (08:47)
[2019-06-17 09:00] VITALS: BP 154/76
--- NOTE | 2019-06-17 12:20 | NUR ---
MD DR. Lukasz KEBEDE AT BEDSIDE, DISCUSSED POC WITH PATIENT/NURSE. ORDERED CT ANGIO OF THE CHEST, RBO. ODELVIS CARRIED OUT.
[2019-06-17 13:00] VITALS: BP 125/64
[2019-06-17] MEDS ORDERED: AMLO5TAB15 PO (13:05)
[2019-06-17] MEDS ORDERED: OMEP-335 PO (13:05)
--- NOTE | 2019-06-17 16:45 | NUR ---
INCENTIVE SPIROMETER PATIENT WAS EDUCATED AND INSTRUCTED ON THE BENEFITS OF IS. PATIENT VERBALIZED UNDERSTANDING AND PROVIDED RETURN DEMONSTRATION.
[2019-06-17 17:00] VITALS: BP 142/81
[2019-06-17] MEDS ORDERED: metFORMIN HYDROCHLORIDE 850 MG TAB PO ONE (18:30)
[2019-06-17] MEDS ORDERED: FAMOTIDINE 20 MG TAB PO ONE (18:30)
[2019-06-17] MEDS ORDERED: BENAZEPRIL HCL 10 MG TAB PO ONE (18:30)
[2019-06-17] MEDS ORDERED: FUROSEMIDE 20 MG TAB PO ONE (18:30)
[2019-06-17] MEDS ORDERED: ASPirin 81 mg TAB PO ONE (18:30)
--- NOTE | 2019-06-17 18:50 | NUR ---
Respiratory note: BEDSIDE SPIROMETRY COMPLETED. RESULTS PLACED IN PT'S CHART.
[2019-06-17 19:18] LABS: Albumin 3.8 g/dL (3.4-5.0); BUN/Creatinine Ratio 15.6; Calcium 8.9 mg/dL (8.5-10.1); Potassium 4.3 mmol/L (3.5-5.1)
--- NOTE | 2019-06-17 19:18 | NUR ---
ENDORSED CARE TO GAVIN LEBLANC. NURSE MADE AWARE OF PENDING CT ANGIO OF THE CHEST. NURSE ALSO MADE AWARE TO HOLD METFORMIN.
[2019-06-17 19:21] LABS: Bilirubin, Total 0.5 mg/dL (0.2-1.0); Total Protein 7.5 g/dL (6.4-8.2)
--- NOTE | 2019-06-17 19:25 | NUR ---
Opening Shift Note Assumed care of patient, awake and alert. No S/S of distress/SOB or pain. Bed in lowest locked position, side rails up x2, call light within reach. Patient aware of NPO status for pending CT angio, verbalized understanding. Instructed on POC and to call for assist PRN, will continue to monitor for changes Q1hr and PRN.
[2019-06-17] MEDS ORDERED: IOHEXOL 350 MG/ML 100ML IJ ONE (20:59)
--- NOTE | 2019-06-17 21:05 | NUR ---
This RN escorted patient to CT scan. No s/s of distress on leaving unit.
--- NOTE | 2019-06-17 21:20 | NUR ---
This RN assisted patient back to unit in wheelchair after CT angio. No s/s of distress. Will continue to monitor.
[2019-06-17 22:00] VITALS: BP 87/51
[2019-06-17] MEDS: BUDESONIDE (INHALATION) 0.5 MG/2 ML NEB NEB SCH (22:00)
--- NOTE | 2019-06-17 22:00 | NUR ---
Hospitalist Paged Sliding scale for moderate insulin noted to have been discontinued and order for metformin noted. Patient unable to receive metformin at this time due to contrast dye from CT angio. machine scallop cutter hospitalist paged, awaiting call back at this time.
[2019-06-17] MEDS: FAMOTIDINE 20 MG TAB PO SCH (22:05)
[2019-06-17] MEDS: MIRTAZAPINE 30 MG TAB PO SCH (22:05)
--- NOTE | 2019-06-17 22:14 | NUR ---
Hospitalist Returned Page fisher scallop hospitalist Bartolome Pack REFRIGERATION INSULATOR returned page at this time. New orders received to resume moderate Insulin sliding scale with every four hour blood sugar assessments and to discontinue Metformin order at this time. All orders read back and verified, will implement and continue to monitor.
--- NOTE | 2019-06-17 22:35 | NUR ---
Blood pressure reassessment Blood pressure noted to be 87/57 with 110 heart rate during 22:00 vital sign check. Blood pressure reassessed and found to be 137/61 with 110 heart rate. No s/s of distress, will continue care.
[2019-06-18] VITALS (7 sets, daily range): BP systolic 87–164; BP diastolic 51–92
[2019-06-18] MEDS: IPRATROPIUM BROM 0.5 MG/2.5ML INH SOL NEB SCH ×4 (00:51→18:37)
[2019-06-18] MEDS: ALBUTEROL SULF 2.5 MG/0.5ML(0.5%) NEB SOLN NEB SCH ×4 (00:51→18:37)
[2019-06-18] MEDS: DOXYCYCLINE 100MG/250ML 250 ML IV SCH (01:39)
[2019-06-18] MEDS: methylPREDNISolone SOD SUCC 40 MG/ML VL IV SCH ×2 (01:40→14:12)
--- NOTE | 2019-06-18 02:00 | NUR ---
Hospitalist Paged Patient reporting anxiety and "claustrophobia" while wearing Bipap machine. scallop cutter machine hospitalist paged, awaiting call back at this time.
--- NOTE | 2019-06-18 02:30 | NUR ---
Hospitalist Returned Page scallop raker hospitalist Bartolome Pack CORRECTIONS COUNSELOR returned page at this time. New orders received for 0.5 mg Ativan PO one time dose.Order read back and verified, will implement and continue to monitor.
[2019-06-18] MEDS ORDERED: LORazepam 0.5 MG TAB PO ONE (03:00)
[2019-06-18] MEDS: ACCU-CHEK COMFORT CURVE STRIP VI SCH ×5 (05:04→21:34)
[2019-06-18] MEDS: InsuLIN REG 1unit/0.01ml Soln (100units/ml) SC SCH ×5 (05:05→22:05)
[2019-06-18 05:57] LABS: BUN/Creatinine Ratio 21.9; Calcium 8.7 mg/dL (8.5-10.1); Potassium 4.6 mmol/L (3.5-5.1)
[2019-06-18] MEDS: BUDESONIDE (INHALATION) 0.5 MG/2 ML NEB NEB SCH ×2 (06:09→23:02)
--- NOTE | 2019-06-18 06:14 | NUR ---
Respiratory note: PT GIVEN MED NEB TX VIA BIPAP, TOLERATED WELL. PT TAKEN OFF BIPAP POST TX AND PLACED ON 3 L NC.
--- NOTE | 2019-06-18 06:55 | NUR ---
Critical CO2 Critical CO2, 41. call out clerk hospitalist paged, awaiting call back at this time. Will inform dayshift GAVIN.
--- NOTE | 2019-06-18 07:02 | NUR ---
Closing Note Patient lying in bed, eyes closed, respirations even and unlabored, appears asleep on 3 liters via nasal cannula. Patient awakens to name and touch. No s/s of distress. Bed in lowest locked position, side rails up x2, call light within reach. Care endorsed to dayshift RN.
--- NOTE | 2019-06-18 07:09 | NUR ---
Hospitalist Returned Page medical insurance verifier hospitalist Bartolome Pack CLOTH BEAMER returned page at this time, informed of CO2 level, no new orders received, will inform dayshift RN.
--- NOTE | 2019-06-18 08:00 | NUR ---
Morning note patient resting in bed with even and unlabored respirations, no distress noted. Instructed patient on POC, fall precautions and to call for assistance as needed. patient verbalized understanding. Fall precautions in place with bed in lowest locked position, x2 side rails up and call light within reach. BSC at bedside. Will continue monitor q1hr & PRN.
[2019-06-18] MEDS: FUROSEMIDE 20 MG TAB PO SCH (08:25)
[2019-06-18] MEDS: ENOXAPARIN SOD 40 MG/0.4 ML SYRINGE SC SCH (08:25)
[2019-06-18] MEDS: ASPirin 81 mg TAB PO SCH (08:25)
[2019-06-18] MEDS: FAMOTIDINE 20 MG TAB PO SCH ×2 (08:25→22:40)
[2019-06-18] MEDS: BENAZEPRIL HCL 10 MG TAB PO SCH (08:25)
--- NOTE | 2019-06-18 11:00 | NUR ---
Midline Placement: Patient educated on need for midline placement. All risks and benefits explained and all questions and concerns addresses prior to procedure. 18g/10cm midline inserted via right cephalic vein using Ultrasound. Sterile technique utilized. Blood return obtained from lumen and flushed easily with NS using proper technique. Midline secured with saline lock; biodisc and occlusive dressing applied. Primary RN notified. Midline lot #[id number]
--- NOTE | 2019-06-18 12:46 | NUR ---
RE: c/o hand cramping Patient notified this RN of c/o right hand cramping. Verbally notified Dr. Roldan. MD verbalized understanding. Instructed to administer Tramadol PO as instructed per MD order. Order received and read back to verify.
[2019-06-18 13:33] LABS: Basophils # (auto) 0.1 uL; Eosinophils # (auto) 0 uL; Eosinophils % (auto) 0.1 % (0.0-7.0); Hemoglobin 8.7 g/dL (12.2-16.2); Lymphocytes # (auto) 2.5 uL; Nucleated Red Blood Cells % 0.3 %
[2019-06-18 13:35] LABS: Basophils % (auto) 0.6 % (0.0-2.0); Hematocrit 30.2 % (36.0-46.0); Lymphocytes % (auto) 16.6 % (10.0-50.0); Mean Corpuscular Hemoglobin 21.1 pg (28.0-32.0); Mean Corpuscular Hgb Conc. 28.9 g/dL (32.0-36.0); Monocytes # (auto) 1.2 uL; Monocytes % (auto) 8.2 % (0.0-12.0); Neutrophils # (auto) 11.1 uL; Neutrophils % (auto) 74.5 % (37.0-80.0); Platelet Count (auto) 331 10^3/uL (140-450); Red Blood Cells 4.13 10^6/uL (4.0-5.20); White Blood Cell 14.9 10^3/uL (4.4-10.8)
[2019-06-18 13:37] LABS: Red Cell Distribution Width 20.2 % (11.8-14.3)
--- NOTE | 2019-06-18 14:27 | NUR ---
(2) IV's removed (2) IV's removed with clean technique, catheter intact. Pressure and dressings applied. Patient tolerated well, no trauma to sites. Patent midline in place to the NIGEL.
--- NOTE | 2019-06-18 15:13 | NUR ---
NUTRITION ASSESSMENT NOTES Please refer to link notes of nutrition screen form filed under the intervention section of the plan of care for further details. Est. Needs based on AdBw (77 kg): 1550 kcal to 1950 kcal (20-25 kcal/kgAdBW), 50 gms to 62 gms pro (1.0-1.2 gms/kgIBW: 50 kg). Will continue to monitor pertinent labs and reassess nutrient need prn Thank you. Addendum: 06/18/19 at [address] Amended: Links added.
--- NOTE | 2019-06-18 15:21 | NUR ---
RE: Elevated HR (ST 180's)/Notified MD Patient's HR on telemonitor displayed ST 180 bpm. Patient was in the process of transferring self from BSC to the bed. Patient has labored breathing and performing pursed lip breathing. Patient reports dizziness. Patient returned completely to bed with no further complications. Call light within reach. Visitor at bedside. Notified Dr. Lukasz Morrow of patient's elevated HR and symptoms. MD verbalized understanding. Will continue to monitor Q1hr & PRN.
[2019-06-18] MEDS ORDERED: ALPRAZolam 0.25 MG TAB PO PRN (16:15)
--- NOTE | 2019-06-18 16:17 | NUR ---
MD was at bedside - Dr. Sabillon POC discussed with . Orders received and read back to verify.
--- NOTE | 2019-06-18 16:57 | NUR ---
D/C Planning Per SS consult for BIPAP Ipap 12, Epap 5, RR 12 FiO2 35%. Contacted [facility]:) Fax:) faxed medical record. Contacted [facility] [place] [facility]:) Fax:) Faxed medical records requesting authorization. Pending on authorization.
[2019-06-18] MEDS ORDERED: metFORMIN HYDROCHLORIDE 850 MG TAB PO SCH (18:00)
[2019-06-18] MEDS: DOXYCYCLINE 100 MG TAB/CAP PO SCH (18:38)
--- NOTE | 2019-06-18 18:43 | NUR ---
Closing note patient resting in bed with even and unlabored respirations, no distress noted. Fall precautions in place with bed in lowest locked position, x2 side rails up and call light within reach. BSC at bedside.
--- NOTE | 2019-06-18 19:17 | NUR ---
Care endorsed GAVIN Blake.
--- NOTE | 2019-06-18 19:30 | NUR ---
Opening Shift Note Assumed care of patient, awake and alert, supine in bed with HOB in high Richter's position. Bed low and locked with bed alarm on. No S/S of distress/SOB at this time and pt denies pain. RN instructed pt re. POC and to call for assist PRN, will continue to monitor for changes Q1hr and PRN.
[2019-06-18] MEDS ORDERED: INSULIN LANTUS (GLARGINE) 1 /0.01ml (100units/ml) SC SCH (22:00)
[2019-06-18] MEDS: TEMAZEPAM 15 MG CAP PO PRN (22:37)
[2019-06-18] MEDS: MIRTAZAPINE 30 MG TAB PO SCH (22:40)
[2019-06-19] MEDS: ALBUTEROL SULF 2.5 MG/0.5ML(0.5%) NEB SOLN NEB SCH ×4 (00:53→18:26)
[2019-06-19] MEDS: IPRATROPIUM BROM 0.5 MG/2.5ML INH SOL NEB SCH ×4 (00:53→18:26)
[2019-06-19] MEDS: ACCU-CHEK COMFORT CURVE STRIP VI SCH ×6 (01:05→20:23)
[2019-06-19] MEDS: InsuLIN REG 1unit/0.01ml Soln (100units/ml) SC SCH ×6 (01:06→20:24)
[2019-06-19] MEDS: methylPREDNISolone SOD SUCC 40 MG/ML VL IV SCH (02:26)
[2019-06-19 05:00] VITALS: BP 152/76
[2019-06-19] MEDS: DOXYCYCLINE 100 MG TAB/CAP PO SCH ×2 (05:24→17:00)
[2019-06-19 06:12] LABS: Basophils # (auto) 0 uL; Eosinophils # (auto) 0 uL; Eosinophils % (auto) 0.2 % (0.0-7.0); Hemoglobin 9.2 g/dL (12.2-16.2); Mean Corpuscular Hemoglobin 21.1 pg (28.0-32.0); Mean Corpuscular Hgb Conc. 28.7 g/dL (32.0-36.0); Monocytes # (auto) 0.8 uL; Monocytes % (auto) 6.6 % (0.0-12.0); Neutrophils # (auto) 9.9 uL; Nucleated Red Blood Cells % 0.2 %
[2019-06-19 06:17] LABS: Basophils % (auto) 0.2 % (0.0-2.0); Hematocrit 32.1 % (36.0-46.0); Lymphocytes # (auto) 1.6 uL; Lymphocytes % (auto) 13.1 % (10.0-50.0); Mean Corpuscular Volume 73.4 fL (80.0-100.0); Neutrophils % (auto) 79.9 % (37.0-80.0); Platelet Count (auto) 347 10^3/uL (140-450); Red Blood Cells 4.37 10^6/uL (4.0-5.20); Red Cell Distribution Width 19.6 % (11.8-14.3); White Blood Cell 12.4 10^3/uL (4.4-10.8)
[2019-06-19] MEDS: BUDESONIDE (INHALATION) 0.5 MG/2 ML NEB NEB SCH ×2 (06:18→18:26)
[2019-06-19 06:41] LABS: BUN/Creatinine Ratio 24.5; Calcium 8.8 mg/dL (8.5-10.1); Magnesium 2.6 mg/dL (1.6-2.6); Potassium 4.2 mmol/L (3.5-5.1)
--- NOTE | 2019-06-19 07:00 | NUR ---
After receiving call from Lukasz Gordon in lab re. critical COs this RN called Dr. Annabella Servin to report serum CO2 of 43. Will call hospitalist and endorse to day shift RN. Addendum: 06/19/19 at 0720 by JENIFFER CONWAY RN Correction to above note: Dr. Franko Sabillon was notified, not Annabella Servin. Steve Pack RN MACHINE OVERHAULER, hospitalist was notified of critical serum CO2. No new orders received.
--- NOTE | 2019-06-19 07:30 | NUR ---
Morning note patient resting in bed, eyes closed, even and unlabored respirations, no distress noted. Fall precautions in place with bed in lowest locked position, x2 side rails up and call light within reach. BSC at bedside. Patient on BIPAP. Will continue monitor q1hr & PRN.
--- NOTE | 2019-06-19 08:16 | NUR ---
Patient transitioned from BIPAP to 3 LPM NC. Patient tolerated well. No complications noted.
[2019-06-19] MEDS: FAMOTIDINE 20 MG TAB PO SCH ×2 (08:27→20:25)
[2019-06-19] MEDS: FUROSEMIDE 20 MG TAB PO SCH (08:27)
[2019-06-19] MEDS: ENOXAPARIN SOD 40 MG/0.4 ML SYRINGE SC SCH (08:27)
[2019-06-19] MEDS: ASPirin 81 mg TAB PO SCH (08:27)
[2019-06-19] MEDS: BENAZEPRIL HCL 10 MG TAB PO SCH (08:27)
[2019-06-19] MEDS ORDERED: AML5T PO (08:42)
[2019-06-19] MEDS ORDERED: SERDISK IN (08:42)
[2019-06-19] MEDS ORDERED: ROPI0.5T16 PO (08:42)
[2019-06-19] MEDS ORDERED: LAMO200T2 PO (08:42)
[2019-06-19 09:00] VITALS: BP 143/74
[2019-06-19] MEDS ORDERED: INSUINJ37 SC (11:50)
--- NOTE | 2019-06-19 11:57 | NUR ---
D/C Planning Followed up call to [facility]:) spoke to Mariana. Per Mariana from [facility] BIPAP will be deliver to bedside between 12:30-15:30. Informed GAVIN Ghosh.
[2019-06-19 13:00] VITALS: BP 160/75
--- NOTE | 2019-06-19 14:31 | NUR ---
Updated MD on physical therapists recommendation Dr. Roldan verbalized understanding. Order received and read back to verify.
--- NOTE | 2019-06-19 14:31 | NUR ---
Paged MD to notify of physical therapists recommendation.
--- NOTE | 2019-06-19 15:02 | NUR ---
Home health has been arranged per DANNY Ovalle. Home health is with [facility]. Informed Yamile of DME order for wheelchair and BSC. Yamile verbalized understanding.
--- NOTE | 2019-06-19 15:19 | NUR ---
Steve Alonzo PT, to clarify recommendation. Addendum: 06/19/19 at 1521 by Davina Mansfield RN Order clarified.
--- NOTE | 2019-06-19 15:19 | NUR ---
I faxed home health order to [employer], requesting authorization for [facility].
--- NOTE | 2019-06-19 15:19 | NUR ---
Prescriptions delivered to bedside by [facility]. Education on new prescriptions provided by retail pharmacy technician.
--- NOTE | 2019-06-19 15:43 | NUR ---
Prescription faxed to [facility] for glucometer, lancets and testing strips. [facility] pharmacy instructed prescription to be faxed for home delivery per [facility].
--- NOTE | 2019-06-19 16:50 | NUR ---
Patient clear for discharge per Dr. Sabillon
--- NOTE | 2019-06-19 16:50 | NUR ---
BIPAP machine delivered to bedside.
[2019-06-19 17:00] VITALS: BP 124/73
--- NOTE | 2019-06-19 17:33 | NUR ---
Called DANNY Ovalle, for status update on order. Yamile to call this RN back with update.
--- NOTE | 2019-06-19 17:55 | NUR ---
RE: Wheelchair & BSC delivery ETA DME Wheelchair and DME bedside commode to be delivered between [id number] today, 06/19/19, per Tye from [facility].
--- NOTE | 2019-06-19 18:17 | NUR ---
D/C Planning Per consult for home health safety evaluation, physical therapy, medication management and vitals. Contacted [facility]:) Fax:) faxed medical records. Per Trudy from [facility] Pt has been accepted and service to start within 48hrs upon d/c day. Contacted [facility] [place] [facility]:( [phone]) Fax:) Faxed medical records requesting authorization. Per consult for bedside commode and wheelchair. Contacted [facility]:) Fax:) faxed medical record. Contacted [facility] [place] [facility]:) Fax:) Faxed medical records requesting authorization. Pending on authorization.
--- NOTE | 2019-06-19 18:44 | NUR ---
Closing note patient resting in bed with even and unlabored respirations, no distress noted. Fall precautions in place with bed in lowest locked position with x2 side rails up and call light within reach. Patient updated on ETA of DME: wheelchair and DME: BSC. Patient's son is to transport patient home via private vehicle. Ordered BIPAP is at bedside. Prescriptions from MD are at bedside.
--- NOTE | 2019-06-19 19:15 | NUR ---
Care endorsed to GAVIN Blake.
[2019-06-19] MEDS: MIRTAZAPINE 30 MG TAB PO SCH (20:28)
--- NOTE | 2019-06-19 20:43 | NUR ---
[facility] delivered BSC and wheelchair. Midline dc'd from R AC area in entirety without diff. Pressure dressing applied; Pt instructed to leave in place for 2 - 4 hours and observe for numbness or tingling. If it occurs loosen dressing. Pt VU. Pulses distal to dressing present and coloring normal. Telemetry removed, cleaned and sent to heart center.
[2019-06-19 20:45] VITALS: BP 180/45
[2019-06-19] MEDS ORDERED: predniSONE 20 MG TAB PO SCH (22:00)
== END 2019-06-19 22:00 | disposition home health service (06) | DRG 133 ==
LOC: ER 10:28 → TELE 10:29 → TELE-WESTW 17:23
PROVIDERS: ADMIT Internal Medicine; ATTEND Internal Medicine
PROC: 5A09357 Assistance with Respiratory Ventilation, Less than 24 Consecutive Hours, Continuous Positive Airway Pressure (ICD-10-PCS; principal; 2019-06-18)
PROC: 5A09357 Assistance with Respiratory Ventilation, Less than 24 Consecutive Hours, Continuous Positive Airway Pressure (ICD-10-PCS; 2019-06-19)
DX: J96.21 Acute and chronic respiratory failure with hypoxia (principal); E87.8 Other disorders of electrolyte and fluid balance, not elsewhere classified; E11.65 Type 2 diabetes mellitus with hyperglycemia; L03.115 Cellulitis of right lower limb; E66.2 Morbid (severe) obesity with alveolar hypoventilation; I11.0 Hypertensive heart disease with heart failure; I50.32 Chronic diastolic (congestive) heart failure; J44.1 Chronic obstructive pulmonary disease with (acute) exacerbation; L03.116 Cellulitis of left lower limb; B19.20 Unspecified viral hepatitis C without hepatic coma; D64.9 Anemia, unspecified; E78.5 Hyperlipidemia, unspecified; F31.9 Bipolar disorder, unspecified; F41.9 Anxiety disorder, unspecified; J96.22 Acute and chronic respiratory failure with hypercapnia; Z96.653 Presence of artificial knee joint, bilateral; J98.11 Atelectasis; T38.0X5A Adverse effect of glucocorticoids and synthetic analogues, initial encounter; Y92.89 Other specified places as the place of occurrence of the external cause; Z80.0 Family history of malignant neoplasm of digestive organs; Z81.8 Family history of other mental and behavioral disorders; Z68.44 Body mass index [BMI] 60.0-69.9, adult; Z88.2 Allergy status to sulfonamides; Z88.8 Allergy status to other drugs, medicaments and biological substances; Z82.0 Family history of epilepsy and other diseases of the nervous system; Z82.49 Family history of ischemic heart disease and other diseases of the circulatory system; Z85.028 Personal history of other malignant neoplasm of stomach; Z87.442 Personal history of urinary calculi; Z87.891 Personal history of nicotine dependence; Z99.81 Dependence on supplemental oxygen; Z90.49 Acquired absence of other specified parts of digestive tract
CPT/HCPCS: 36415; 36600; 71045; 71275; 80048; 80053; 81001; 82805; 82962; 83036; 83605; 83735; 83880; 84484; 85025; 87040; 87070; 87081; 87205; 93005; 93970; 94060; 94640; 94660; 94761; 94762; 96365; 96375; 96376; 99291; G0378; J1815; J3490